=== PATIENT | female | born 1990 | race Caucasian/White ===

== ENCOUNTER → 2018-04-25 | Outpatient (CLI) | payer OTHER ==
[2018-04-25 08:43] LABS: BASO % 0.2 % (0.0-2.0); EOS # 0.1 (0.0-0.7); EOS % 1.4 % (0-4.0); GRAN # 1.6 (1.4-6.5); GRAN % 36.9 % (42.2-75.2); HEMATOCRIT 39.4 % (37.0-47.0); HEMOGLOBIN 13.2 g/dl (12.5-16.0); LYMPH # 2.2 (1.2-3.4); LYMPH % 50.6 % (20.0-51.0); MEAN CELL VOLUME 97 fl (80.0-100.0); MEAN CORPUSCULAR HEMOGLOBIN 33 pg (27.0-31.0); MEAN CORPUSCULAR HGB CONC 34 g/dl (33.0-37.0); MEAN PLATELET VOLUME 9.8 fl (7.4-10.4); MONO # 0.5 (0.1-0.6); MONO % 10.7 % (1.7-9.3); PLATELET COUNT 289 K/mm3 (130-400); RED BLOOD COUNT 4.06 M/mm3 (4.10-5.30)
[2018-04-25 08:58] LABS: ALANINE AMINOTRANSFERASE 26 U/L (9-52); ALBUMIN 4.4 gm/dL (3.5-5.0); ALKALINE PHOSPHATASE 51 U/L (50-136); ANION GAP 10 mmol/L (7-16); CALCIUM 9.5 mg/dL (8.4-10.2); CARBON DIOXIDE 33 mmol/L (22-30); CHLORIDE 99 mmol/L (98-107); CREATININE, serum 0.83 mg/dL (0.52-1.25); GLUCOSE 90 mg/dL (74-106); LIPASE 121 U/L (23-300); POTASSIUM 4.3 mmol/L (3.4-5.0); SODIUM 141 mmol/L (137-145); TOTAL PROTEIN 7.7 gm/dL (6.4-8.2)
[2018-04-25 09:03] LABS: C-REACTIVE PROTEIN < 0.5 mg/dL (0.0-0.9)
[2018-04-25 09:04] LABS: AST,SGOT 32 U/L (15-37); BILIRUBIN,TOTAL 0.7 mg/dL (0.0-1.0); BLOOD UREA NITROGEN 12 mg/dL (7-17)
== END ==
LOC: COL.LAB 07:58
PROVIDERS: Physician Assistant Medical
DX: R10.9 Unspecified abdominal pain (principal)